=== PATIENT | male | born 1980 | race Caucasian/White ===

== ENCOUNTER 2024-12-28 17:02 | Outpatient (CLI) | payer BC, SELFPAY ==
--- NOTE | 2024-12-28 17:30 | CRLHL7_ITS ---
For Patients: As a result of the Century Cures Act, medical imaging exams and procedure reports are released immediately into your electronic medical record. You may view this report before your referring provider. If you have questions, please contact your health care provider. INDICATION: Left lumbar radiculopathy TECHNIQUE: Lumbar spine MRI was performed without the administration of intravenous contrast. COMPARISON: : None. FINDINGS: There is normal lumbar alignment. No STIR hyperintensity to suggest an acute fracture or ligamentous injury. No suspicious marrow replacement. The vertebral body heights are maintained. Multilevel degenerative changes including disc space height loss, endplate, and bone marrow changes predominantly at L4-L5 and L5-S1. The visualized spinal cord and cauda equina nerve roots are within normal limits. Significant findings by level: T12-L1: No significant spinal canal or neural foraminal narrowing. L1-L2: No significant spinal canal or neural foraminal narrowing. L2-L3: No significant spinal canal or neural foraminal narrowing. L3-L4: Mild disc bulge effaces the thecal sac without significant spinal canal narrowing. No significant neural foraminal narrowing. L4-L5: Mild disc bulge effaces the thecal sac without significant spinal canal narrowing. No significant neural foraminal narrowing. L5-S1: Effacement of the left lateral recess with impingement of the descending left S1 nerve root due to left subarticular disc protrusion. No significant neural foraminal narrowing. No significant spinal canal narrowing. The visualized soft tissues are within normal limits. IMPRESSION: 1. No evidence of acute fracture or malalignment. 2. At L5-S1, a left subarticular disc protrusion results in effacement of the left lateral recess with impingement of the descending left S1 nerve root. 3. No significant spinal canal or neural foraminal narrowing. Dictated by Elvis Seay MD @ 12/29/2024 12:32:20 PM (Electronically Signed)
== END 2024-12-28 17:03 | disposition home or self-care (01) ==
LOC: MRI 17:02
PROVIDERS: PCP Student in an Organized Health Care Education/Training Program; Visit Provider Family Medicine
DX: M54.16 Radiculopathy, lumbar region (principal); M51.27 Other intervertebral disc displacement, lumbosacral region
CPT/HCPCS: 72148

== ENCOUNTER 2025-01-13 08:31 | Outpatient (CLI) | payer BC, SELFPAY | END 2025-01-13 08:32 | disposition home or self-care (01) | LOC: INJ CL 08:32 | PROVIDERS: PCP Student in an Organized Health Care Education/Training Program; Visit Provider Nurse Anesthetist, Certified Registered | DX: M54.16 Radiculopathy, lumbar region (principal) | CPT/HCPCS: 64483; J0665; J1100; Q9966 ==